=== PATIENT | male | born 1970 | race Caucasian/White ===

== ENCOUNTER 2023-06-03 03:31 | Emergency (ER) | payer BC, OTHER ==
[~2023-06-03] VITALS: Ht 180.3 cm; Wt 108.9 kg
[2023-06-03 04:55] VITALS: BP 115/86; TEMP 98.6; O2SAT 99
== END 2023-06-03 04:55 | disposition home or self-care (01) ==
LOC: ER 03:37
DX: S63.693A Other sprain of left middle finger, initial encounter (principal); Z98.890 Other specified postprocedural states; X50.1XXA Overexertion from prolonged static or awkward postures, initial encounter; Y93.89 Activity, other specified; Y92.89 Other specified places as the place of occurrence of the external cause; Y99.8 Other external cause status
CPT/HCPCS: 73130; A4606; A4663